=== PATIENT | female | born 2000 | race Caucasian/White ===

== ENCOUNTER 2024-09-25 15:56 | Outpatient (CLI) | payer OTHER, SELFPAY ==
[2024-09-25 16:17] VITALS: PULSE 82; O2SAT 98
[2024-09-25 16:20] VITALS: BP 123/67; PULSE 73
[2024-09-25 16:21] LABS: Hematocrit 31.5 % (33.0-51.0); Hemoglobin* 10.3 gm/dL (12.0-16.0); Mean Corpuscular HGB Conc 33 gm/dL (32-36); Mean Corpuscular Hemoglobin 28 pg (26-34); Mean Corpuscular Volume 85 fL (80-100); Platelet Count* 241 K/uL (140-440); Red Blood Count 3.73 m/uL (4.00-5.20); White Blood Count* 11.11 K/uL (4.50-11.00)
[2024-09-25 16:30] VITALS: BP 120/64; PULSE 66
[2024-09-25 16:30] LABS: Slide Review Reflex No
[2024-09-25 16:40] VITALS: BP 117/60; PULSE 76
[2024-09-25 16:41] LABS: Alanine Aminotransferase* 14 U/L (4-35); Aspartate Amino Transferase* 19 U/L (12-35); Blood Urea Nitrogen* 14 mg/dL (5-24); Creatinine* 0.6 mg/dL (0.5-1.5); Estimated Glomerular Filt Rate 127 ml/min
[2024-09-25 16:50] VITALS: BP 117/59; PULSE 70
[2024-09-25 17:16] LABS: Total Protein Urine < 5 mg/dL
[2024-09-25 17:17] LABS: Creatinine Urine 145.2 mg/dL; Protein Creatinine Ratio Urine 0.03 (0-0.19)
--- NOTE | 2024-09-25 17:56 | PC.OBNST ---
NST Note NST Note Start: 09/25/24 16:07 Freq: ONCE Status: Active Protocol: Document 09/25/24 17:54 [facility] (Rec: 09/25/24 17:56 [facility] [id number]) NST Note 1 Para (# of births) 0 EDC 10/16/24 Gestational Age In Weeks & Days 37 Weeks & 0 Days Patient Presented with Complaint(s) of Other Other Complaints Pt. called and had increased swelling and high BP readings at home 150's/90's Reactive Yes Appropriate for Gestational Age Yes DAVID Santos Date 09/25/24 Reactive Yes Appropriate for Gestational Age Yes DAVID Mosley Date 09/25/24 OB NST charge Yes Complete NST Note via Write Note Yes The provider's electronic signature indicates the NST is reactive/appropriate for gestational age. *Note to provider: If an addendum is required, open the patient's chart and click on the note under the Nurse/Allied Health tab.
== END 2024-09-25 17:55 | disposition home or self-care (01) ==
LOC: OB OUT 15:57 → OB 15:58
PROVIDERS: PCP Family Medicine; Visit Provider Family Medicine
DX: O26.893 Other specified pregnancy related conditions, third trimester (principal); R03.0 Elevated blood-pressure reading, without diagnosis of hypertension; Z3A.37 37 weeks gestation of pregnancy
CPT/HCPCS: 36415; 59025; 82565; 82570; 84156; 84450; 84460; 84520; 85027; G0463

== ENCOUNTER 2024-09-30 17:08 | Outpatient (CLI) | payer OTHER, SELFPAY ==
[2024-09-30] VITALS (12 sets, daily range): BP systolic 110–133; BP diastolic 61–83; PULSE 75–93; TEMP 37.4
[2024-09-30 17:45] LABS: Hematocrit 30.1 % (33.0-51.0); Hemoglobin* 9.9 gm/dL (12.0-16.0); Mean Corpuscular HGB Conc 33 gm/dL (32-36); Mean Corpuscular Hemoglobin 28 pg (26-34); Mean Corpuscular Volume 84 fL (80-100); Platelet Count* 244 K/uL (140-440); Red Blood Count 3.57 m/uL (4.00-5.20); White Blood Count* 12.74 K/uL (4.50-11.00)
[2024-09-30 17:51] LABS: Slide Review Reflex No
[2024-09-30 18:02] LABS: Aspartate Amino Transferase* 18 U/L (12-35); Blood Urea Nitrogen* 12 mg/dL (5-24); Creatinine* 0.6 mg/dL (0.5-1.5); Estimated Glomerular Filt Rate 127 ml/min
[2024-09-30 18:03] LABS: Alanine Aminotransferase* 13 U/L (4-35)
[2024-09-30 18:30] LABS: Total Protein Urine 13 mg/dL
[2024-09-30 18:53] LABS: Creatinine Urine 40.8 mg/dL; Protein Creatinine Ratio Urine 0.32 (0-0.19)
--- NOTE | 2024-09-30 20:56 | PC.OBNST ---
NST Note NST Note Start: 09/30/24 17:14 Freq: ONCE Status: Active Protocol: Document 09/30/24 20:30 [facility] (Rec: 09/30/24 20:55 [facility] [id number]) NST Note 1 Para (# of births) 0 EDC 10/16/24 Gestational Age In Weeks & Days 37 Weeks & 5 Days Patient Presented with Complaint(s) of Other Other Complaints R/O Pre-eclampsia/gestational hypertension Reactive Yes Appropriate for Gestational Age Yes RN Kala RN Date 09/30/24 Reactive Yes Appropriate for Gestational Age Yes RN Adebayo RN Date 09/30/24 OB NST charge Yes Complete NST Note via Write Note Yes The provider's electronic signature indicates the NST is reactive/appropriate for gestational age. *Note to provider: If an addendum is required, open the patient's chart and click on the note under the Nurse/Allied Health tab.
--- NOTE | 2024-10-16 21:07 | PC.OBNST ---
NST Note NST Note Start: 09/30/24 17:14 Freq: ONCE Status: Discharge Protocol: Document 09/30/24 20:30 [facility] (Rec: 09/30/24 20:55 [facility] [id number]) NST Note 1 Para (# of births) 0 EDC 10/16/24 Gestational Age In Weeks & Days 37 Weeks & 5 Days Patient Presented with Complaint(s) of Other Other Complaints R/O Pre-eclampsia/gestational hypertension Reactive Yes Appropriate for Gestational Age Yes RN Kala RN Date 09/30/24 Reactive Yes Appropriate for Gestational Age Yes RN Adebayo RN Date 09/30/24 OB NST charge Yes Complete NST Note via Write Note Yes The provider's electronic signature indicates the NST is reactive/appropriate for gestational age. *Note to provider: If an addendum is required, open the patient's chart and click on the note under the Nurse/Allied Health tab.
== END 2024-09-30 21:06 | disposition home or self-care (01) ==
LOC: OB OUT 17:08 → OB 20:21
PROVIDERS: PCP Family Medicine; Visit Provider Family Medicine
DX: O13.3 Gestational [pregnancy-induced] hypertension without significant proteinuria, third trimester (principal); Z3A.37 37 weeks gestation of pregnancy
CPT/HCPCS: 36415; 59025; 82565; 82570; 84156; 84450; 84460; 84520; 85027; G0463

== ENCOUNTER 2024-10-01 11:28 | Inpatient (IN) | payer OTHER, SELFPAY ==
[2024-10-01] VITALS (11 sets, daily range): BP systolic 115–137; BP diastolic 55–86; PULSE 73–96; RESP 16; TEMP 36.8–37.3; O2SAT 98; BMI 36.1
[2024-10-01 12:37] LABS: Basophils Absolute Auto 0.05 K/uL (0.00-0.30); Basophils Percent Auto 0.5 % (0.0-3.0); Eosinophils Absolute Auto 0.08 K/uL (0.00-0.50); Eosinophils Percent Auto 0.7 % (0.0-7.0); Hematocrit 31.7 % (33.0-51.0); Hemoglobin* 10.3 gm/dL (12.0-16.0); Immature Granulocytes Abs Auto 0.02 K/uL (0.00-0.30); Immature Granulocytes Pct Auto 0.2 %; Lymphocytes Percent Auto 15.7 % (20-44); Mean Corpuscular HGB Conc 33 gm/dL (32-36); Mean Corpuscular Hemoglobin 27 pg (26-34); Mean Corpuscular Volume 84 fL (80-100); Monocytes Percent Auto 6.2 % (0.0-11.0); Neutrophils Percent Auto 76.7 % (42.0-72.0); Platelet Count* 232 K/uL (140-440); RDW Coefficient of Variation % 14.5 % (11.5-15.5); Red Blood Count 3.77 m/uL (4.00-5.20)
[2024-10-01 12:41] LABS: Slide Review Reflex No
[2024-10-01] MEDS: miSOPROStoL 25 MCG/0.25 TABLET PO ×3 (12:46→20:08)
[2024-10-01 13:02] LABS: Alanine Aminotransferase* 13 U/L (4-35); Aspartate Amino Transferase* 17 U/L (12-35); Blood Urea Nitrogen* 12 mg/dL (5-24); Creatinine* 0.6 mg/dL (0.5-1.5); Estimated Glomerular Filt Rate 127 ml/min
--- NOTE | 2024-10-01 19:45 | PM.OBHPLI ---
OB - H&P: HPI Labor/Induction History of Present Illness Time Seen by Provider: 12:30 Date Seen: 10/01/24 Chief Complaint: The patient is a 24 year old 1 para 1 at 37.6 weeks gestation by LMP and consistent with 9 week 6 day ultrasound, who presents for IOL for preeclampsia (hypertension and proteinuria). Chief complaint: maternity : 1 Para: 0 Indications for induction: pre-eclampsia Narrative: Shannan Baker is a 24 year old female, who presents for IOL for preeclampsia. Patient had elevated blood pressures yesterday in clinic in the 150s systolic. Had 4 hours of monitoring and did not have another elevated bp. Preeclampsia labs last evening were positive for proteinuria. She returned to clinic this morning and had systolic bp of 142. She had no symptoms of preeclampsia other than edema. Given now meeting criteria for preeclampsia, she was moved to [facility] for IOL at [address]d. Dr Ellis is primary FMOB, she will take over this evening. History of Present Dating criteria: based on LMP (consistent with 9 week ultrasound) care: good care Ultrasounds: normal 1st trimester US and normal mid trimester US complications: preeclampsia Medical complications: none Labs Blood type: O (+) positive Rubella: immune RPR/VDLR: nonreactive GBS status: negative HBsAG: negative Review of Systems Status of ROS: Reports: 10 or more systems reviewed and unremarkable except as noted in History and below Meds Home Medications and Allergies Home Medications ?Medication ?Instructions ?Recorded ?Confirmed ?Type vit no.95-ferrous 1 tab PO DAILY 10/01/24 10/01/24 History fumarate 28 mg-folic acid 800 mcg tablet () Allergies Allergy/AdvReac Type Severity Reaction Status Date / Time Penicillins Allergy Unknown Verified 09/25/24 16:27 OB - H&P: Exam Physical Exam: Vital signs: Temp Pulse Resp BP Pulse Ox 98.3 F 75 16 119/56 L 98 10/01/24 19:38 10/01/24 19:39 10/01/24 17:57 10/01/24 19:39 10/01/24 11:39 Constitutional: Constitutional: no acute distress Routine HEENT Exam: Head: Present atraumatic ENT: Present mucous membranes moist and normal exam Routine Neck Exam: Neck: Present full ROM Detailed Neck Exam: Thyroids: Thyroid: Present normal Routine Respiratory Exam: Respiratory: Present CTA bilaterally Routine Cardiovascular Exam: Cardiovascular: RRR, S1 and S2 Detailed Labor and Delivery Exam: Patient Gravid: Yes Dilation (cm): 1 Effacement (%): 20 Cervix position: posterior Consistency: medium Cervical ripeness score: 2 Fetus (Single): Station: -3 Amniotic Membrane Status: intact Heart Rate Baseline: 130 Monitor Accelerations: Present Monitor Decelerations: None Burning Machine Operator Variability: Moderate (6-25) Routine Extremities Exam: Extremities: Present full ROM and pedal edema (2+ pitting edema bilaterally) Routine Skin Exam: Present intact Routine Neurological Exam: Present alert and oriented X3 Routine Psychiatric Exam: Present normal affect OB - Results Labs Labs: Short CBC 10/01/24 Range/Units 12:21 WBC 10.80 (4.50-11.00) K/uL Hgb 10.3 L (12.0-16.0) gm/dL Hct 31.7 L (33.0-51.0) % Plt Count 232 (140-440) K/uL BMP 10/01/24 12:21 BUN 12 Creatinine 0.6 Liver Function 10/01/24 Range/Units 12:21 AST 17 (12-35) U/L ALT 13 (4-35) U/L OB - Problem Based A/P Additional Plan (1) Preeclampsia: Problem details: Diagnosed off elevated BPs and proteinuria. Status: Acute Plan: - IOL now - Preeclampsia assessments - Repeat Pre-E labs reassuring (2) Term : Status: Acute Plan: - anticipate Plan Cytotec was started on admission. Patient desired cook catheter placement. Unfortunately, did not tolerate placement. Will continue PO cytotec with plan for cook vs pitocin after completing 6 doses. - Dr Ellis to resume care. Updated. Delivery/Labor/Induction Plan Plan: induction Induction method: per misoprostol protocol
[2024-10-01] MEDS: hydrOXYzine pamoate 25 MG CAPSULE 100 MG PO (23:19)
[2024-10-02] VITALS (89 sets, daily range): BP systolic 86–156; BP diastolic 49–86; PULSE 61–193; RESP 16–18; TEMP 36.3–38.2; O2SAT 93–100
[2024-10-02] MEDS: miSOPROStoL 25 MCG/0.25 TABLET PO ×3 (00:49→06:26)
--- NOTE | 2024-10-02 09:23 | PM.OBPNL ---
Subjective Date Seen: 10/02/24 Narrative: Shannan is a at 38 weeks here for IOL for preeclampsia. BP remains well controlled overnight. She completed oral cytotec overnight, would intermittently have regular, moderate intensity contractions. Since last dose at 0630, contractions have subsided. Cervix this morning 250/-3. Offered cook catheter placement for more cervical ripening vs AROM with pitocin if needed. Patient elected for AROM as prior cook attempt was traumatic. With AROM, there was a scant amount of clear/blood tinged fluid. Objective Vital Signs: Last Vital Signs Temp 99.2 F 10/02/24 06:27 Pulse 83 10/02/24 08:53 Resp 16 10/02/24 06:27 BP 104/52 L 10/02/24 08:53 Pulse Ox 97 10/02/24 06:25 Pelvic Exam Dilation (cm): 2 Effacement (%): 50 Station: -3 Contractions Monitor mode: External Contraction pattern: Irregular Contraction intensity: Mild Assessment Assessment: induction ongoing Station: -3 Amniotic Membrane Status: AROM Status: Category l Heart Rate Baseline: 140 Correction Variability: Moderate (6-25) Monitor Accelerations: Present Monitor Decelerations: None Plan Plan: Completed oral cytotec doses. AROM as above. Start pitocin after 1030 if no regular contraction pattern. Patient desires water if BP remains adequately controlled/no magnesium needed.
[2024-10-02] MEDS: LACTATED RINGERS 1000 ML 1,000 ML 123 ML IV (15:16)
[2024-10-02] MEDS: OXYTOCIN 30 unit/500 ML in NS 30 UNIT/500 ML BAG IVPB (15:16)
[2024-10-02] MEDS: fentaNYL 100 MCG/2 ML inj IVP (16:23)
[2024-10-02 16:41] LABS: Basophils Percent Auto 0.1 % (0.0-3.0); Eosinophils Percent Auto 0.5 % (0.0-7.0); Hemoglobin* 12.4 gm/dL (12.0-16.0); Immature Granulocytes Pct Auto 0.2 %; Lymphocytes Percent Auto 18.3 % (20-44); Mean Corpuscular HGB Conc 33 gm/dL (32-36); Mean Corpuscular Hemoglobin 27 pg (26-34); Mean Corpuscular Volume 84 fL (80-100); Monocytes Percent Auto 5.5 % (0.0-11.0); Neutrophils Percent Auto 75.4 % (42.0-72.0); Platelet Count* 291 K/uL (140-440); RDW Coefficient of Variation % 14.7 % (11.5-15.5); Red Blood Count 4.54 m/uL (4.00-5.20); White Blood Count* 16.37 K/uL (4.50-11.00)
[2024-10-02 16:42] LABS: Slide Review Reflex No
[2024-10-02] MEDS: LIDOCAINE 2% (PF) 5 ML VIAL EPIDURAL (16:56)
[2024-10-02] MEDS: ROPIVACAINE 0.2% 100 ml 100 ML 12 MG EPIDURAL (17:00)
[2024-10-02] MEDS: fentaNYL 250 MCG/5 ML inj 100 MCG EPIDURAL (17:00)
[2024-10-02] MEDS: PHENYLEPHRINE 100 MCG/ML SYRINGE IVP ×3 (17:05→17:16)
--- NOTE | 2024-10-02 17:11 | PM.ANBPRC ---
[facility] Social History What is your current living situation?: I presently have a place to live Problems where you live: no known problems In the past 12 months, utilities in danger of being shut off: no In past 12 months, lack of transportation kept you from medical appts, meetings, work, or getting things needed for daily living: no In the past 12 mos, have been you worried that your food would run out before you had money to buy more?: never true In the past 12 mos, the food you bought just didn't last and you didn't have money to buy more?: never true Smoking Status: Never smoker How often does anyone, including family, friends and others, physically hurt you: never How often does anyone, including family, friends and others, insult or talk down to you: never How often does anyone, including family, friends and others, threaten you with harm: never How often does anyone, including family, friends and others, scream or curse at you: never Meds Home Medications and Allergies Home Medications ?Medication ?Instructions ?Recorded ?Confirmed ?Type vit no.95-ferrous 1 tab PO DAILY 10/01/24 10/01/24 History fumarate 28 mg-folic acid 800 mcg tablet () Allergies Allergy/AdvReac Type Severity Reaction Status Date / Time Penicillins Allergy Unknown Verified 09/25/24 16:27 Results Labs Labs: Laboratory Results - last 24 hr 10/02/24 16:27 WBC 16.37 H RBC 4.54 Hgb 12.4 Hct 38.0 MCV 84 MCH 27 MCHC 33 RDW Coeff of Sergio 14.7 Plt Count 291 Neut % (Auto) 75.4 H Lymph % (Auto) 18.3 L [place] % (Auto) 5.5 Eos % (Auto) 0.5 Baso % (Auto) 0.1 Neut # (Auto) 12.30 H Lymph # (Auto) 3.00 H [place] # (Auto) 0.90 Eos # (Auto) 0.10 Baso # (Auto) 0.00 Abs Immat Gran (auto) 0.00 Imm/Tot Granulo (auto) 0.2 Vital Signs Vital Signs: Last Vital Signs Temp 98.1 F 10/02/24 12:37 Pulse 79 10/02/24 17:10 Resp 16 10/02/24 12:37 BP 94/52 L 10/02/24 17:10 Pulse Ox 97 10/02/24 17:10 Weight: 89.584 kg Height: 157.48 cm Anesthesia Procedures Epidural Insertion Patient Location: OB Start Time: 16:15 Stop Time: 17:15 Start Date: 10/02/24 Stop Date: 10/02/24 Reason for Block: primary anesthetic Patient Position: sitting Performed By: Adam Frey Preanesthetic Checklist: IV checked, risks and benefits discussed, surgical consent, monitors and equipment checked, pre-op evaluation, timeout performed and anesthesia consent Prep: chlorhexidine gluconate Monitoring: blood pressure monitoring, hospital monitor, continuous pulse oximetry and heart rate Approach: midline Vertebral Space: lumbar (1-5) Needle Type: Tuohy needle Injection Technique: continuous catheter Needle gauge: 17 Needle Length (cm): 10 cm Needle Insertion Depth (cm): 6 Catheter Gauge: 19 Catheter Type: multi-orifice Catheter at skin depth (cm): 12 Test Dose Result: negative and lidocaine 1.5% with epinephrine 1 to 200,000 Events: other
[2024-10-02] MEDS: ePHEDrine sulfate 5 MG/ML inj 10 MG IVP ×2 (17:26→17:48)
[2024-10-02] MEDS: LACTATED RINGERS 1000 ML 1,000 ML 500 ML IV (17:27)
--- NOTE | 2024-10-02 18:52 | PM.OBPNL ---
Subjective Date Seen: 10/02/24 Narrative: Shannan is a 24 yo at 38 weeks, IOL for preeclampsia. Contractions became more strong/regular once pitocin started this afternoon. Patient received an epidural around 1600, is now comfortable without pain or pelvic pressure. Objective Vital Signs: Last Vital Signs Temp 99 F 10/02/24 17:45 Pulse 93 10/02/24 18:39 Resp 18 10/02/24 13:35 BP 113/55 L 10/02/24 18:39 Pulse Ox 99 10/02/24 18:40 Pelvic Exam Dilation (cm): 4 Effacement (%): 60 Station: -3 Contractions Monitor mode: Internal Contraction Frequency: 2.5 minutes Contraction pattern: Regular Contraction intensity: Strong/Firm Pitocin Rate (mU/min): 4 Assessment Assessment: induction ongoing Station: -3 Amniotic Membrane Status: AROM Status: Category l Heart Rate Baseline: 150 Operations Research Director Variability: Moderate (6-25) Monitor Accelerations: Present Monitor Decelerations: Variable Plan Plan: IOL ongoing, continue pitocin titration. Patient comfortable with epidural. BP within normal ranges. Anticipate .
[2024-10-02] MEDS: LACTATED RINGERS 1000 ML 1,000 ML 125 ML IV (21:13)
[2024-10-02] MEDS: ONDANSETRON 2 MG/ML inj 4 MG IV (22:54)
[2024-10-02 23:04] LABS: Rapid Plasma Reagin (RPR) Non Reactive (Non Reactive)
[2024-10-02] MEDS: ACETAMINOPHEN 500 MG TABLET 1000 MG PO (23:41)
[2024-10-03] VITALS (28 sets, daily range): BP systolic 113–137; BP diastolic 57–83; PULSE 80–148; RESP 16–18; TEMP 36.6–36.8; O2SAT 93–100
[2024-10-03] MEDS: CLINDAMYCIN 900 MG/50 ML-D5W 900 MG/50 ML PIGGYBACK 100 MG IVPB (00:23)
[2024-10-03] MEDS: LIDOCAINE 1 % PF 30 ML INJECTION (00:40)
--- NOTE | 2024-10-03 01:12 | W.PM.VAGDEL1 ---
Procedure Delivery date: 10/03/24 Procedure Done: Global Events: Pre-Eclampsia Intrapartal Events: Labor Induction, Febrile (>100.4F) and Chorioamnionitis Delivery augmentation: rupture of membranes and pitocin Delivery monitor: external FHT and internal uterine Route of delivery: Episiotomy description: None Laceration description: Vaginal - 1st Degree Delivery repair: Vicryl Estimated blood loss (mL): 75 Anesthesia type: Epidural Disposition: floor Narrative: The patient is a 24 year-old admitted on 10/01/2024 at 37 Weeks, 6 Days gestation for preeclampsia.? Cervical exam on admission was 1 cm/20 % effaced/-3 station with membranes intact in vertex presentation.? Contractions were rare. heart rate demonstrated baseline 140 bpm with moderate variability, + accelerations, - decelerations; a category 1 tracing.?Cervical ripening was per PO cytotec protocol after failed attempt at cook catheter placement. AROM occurred at 0908 with clear fluid, at that time cervix was 2/50/-3. When patient was complete, maternal and tachycardia as well as maternal temp of 100.8 was noted. Antibiotics started however only clindamycin was able to be administered prior to delivery. ? Labor Analgesia:? epidural 1700 on 10/02/24 ? Pitocin:? yes ? Labor onset:? 0832 ? Complete:? 2346 ? Pushing:? 2348 ? heart tones during second stage were category 2 with deep decels with pushing. ? At 0029 a viable female infant delivered in vertex OA presentation over intact perineum via spontaneous vaginal delivery.?There was a loose nuchal cord reduced at the perineum. was placed on maternal abdomen.? Cord was clamped and cut after a 60 second delay.? Nose and mouth were bulb suctioned.? weight 6lb1oz.? 7 at 1 minute and 8 at 5 minutes.? Shoulder dystocia: no.? Nuchal cord: yes. ? Placenta delivered spontaneously and complete at 0034 with a 3 vessel cord. ? Mother and infant were stable after delivery. ? Lacerations:? 1st degree vaginal, repaired with 3-0 vicryl suture. ? Blood loss: 75 mL. Blood loss measurement type: QBL ? Sponge and needles counts are correct. [place] Gender: Female presentation: vertex Placental Delivery Description: Spontaneous Cord Description: 3 Vessels, Nuchal Cord, Loose and Reduced
[2024-10-03] MEDS: IBUPROFEN 600 MG TABLET PO ×3 (01:32→17:20)
[2024-10-03] MEDS: ACETAMINOPHEN 500 MG TABLET 1000 MG PO ×3 (07:32→20:59)
--- NOTE | 2024-10-03 08:45 | PM.OBPNVD1 ---
OB - PN:Subj Subjective Time Seen by Provider: 08:45 Date Seen: 10/03/24 Patient comments OB post-: no complaints, pain well controlled and tolerating diet [place] infant status: and doing well [place] feeding status: exclusively OB - PN: Obj Exam Physical Exam: Vital signs: Temp Pulse Resp BP Pulse Ox O2 Del Method 97.8 F 85 16 121/78 95 Room Air 10/03/24 07:32 10/03/24 04:50 10/03/24 04:50 10/03/24 04:50 10/03/24 04:50 10/03/24 04:50 Constitutional: Constitutional: no acute distress and mild distress Routine HEENT Exam: Head: Present atraumatic and normal inspection Routine Neck Exam: Neck: Present full ROM Routine Respiratory Exam: Respiratory: Present CTA bilaterally Routine Cardiovascular Exam: Cardiovascular: Present RRR, S1 and S2; Absent murmur Routine Neurological Exam: Neurological: Present alert and oriented X3 Routine Psychiatric Exam: Psychiatric: Present normal affect OB - PN: Obj Data Labs Labs: Laboratory Results - last 24 hr 10/01/24 10/02/24 12:21 16:27 WBC 16.37 H RBC 4.54 Hgb 12.4 Hct 38.0 MCV 84 MCH 27 MCHC 33 RDW Coeff of Sergio 14.7 Plt Count 291 Neut % (Auto) 75.4 H Lymph % (Auto) 18.3 L [place] % (Auto) 5.5 Eos % (Auto) 0.5 Baso % (Auto) 0.1 Neut # (Auto) 12.30 H Lymph # (Auto) 3.00 H [place] # (Auto) 0.90 Eos # (Auto) 0.10 Baso # (Auto) 0.00 Abs Immat Gran (auto) 0.00 Imm/Tot Granulo (auto) 0.2 RPR Screen Non Reactive Blood Type O Positive Antibody Screen NEGATIVE OB - PN: A/P Delivery Assessment and Plan (1) Preeclampsia: Problem details: Diagnosed off elevated BPs and proteinuria. Status: Acute Assessment and Plan: blood pressures normal, continue assessments (2) Term : Problem details: s/p Status: Inactive Plan - routine cares Plan day: 1 Plan: routine care
[2024-10-03] MEDS: DOCUSATE SODIUM 100 MG CAPSULE PO (10:48)
[2024-10-04 01:10] VITALS: BP 116/69; PULSE 85; RESP 18; O2SAT 95
[2024-10-04] MEDS: IBUPROFEN 600 MG TABLET PO ×3 (03:14→20:30)
[2024-10-04 04:35] VITALS: BP 103/67; PULSE 73; RESP 18; TEMP 37.2; O2SAT 96
[2024-10-04 06:45] LABS: Hemoglobin* 8.8 gm/dL (12.0-16.0)
--- NOTE | 2024-10-04 07:35 | PM.OBPNVD1 ---
OB - PN:Subj Subjective Date Seen: 10/04/24 [place] status: Narrative: PPD #1 - pain relatively well controlled with Tylenol and ibuprofen. Feels achy. going well. Hoping to meet with today. Bleeding appropriate. Sometimes feels a bit light headed when up and moving around. OB - PN: Obj Exam Physical Exam: Vital signs: Temp Pulse Resp BP Pulse Ox O2 Del Method 98.9 F 73 18 103/67 96 Room Air 10/04/24 04:35 10/04/24 04:35 10/04/24 04:35 10/04/24 04:35 10/04/24 04:35 10/04/24 04:35 Narrative: Gen: alert, pleasant, NAD CV: RRR, no murmurs Lungs: CTA b/l Abd: soft, fundus firm and below umbilicus Extremities: 1+ pitting edema in b/l LE, no clonus OB - PN: Obj Data Labs Labs: Laboratory Results - last 24 hr 10/04/24 06:20 Hgb 8.8 L OB - PN: A/P Delivery Assessment and Plan (1) Preeclampsia: Problem details: Diagnosed off elevated BPs and proteinuria. Status: Acute (2) Term : Problem details: s/p Status: Inactive (3) anemia: Status: Acute Plan day: 1 Plan: routine care Comments: Start PO iron for anemia. See today. Anticipate discharge home on 10/05/24.
[2024-10-04 07:58] VITALS: BP 127/85; PULSE 76; RESP 16; TEMP 36.9; O2SAT 95
[2024-10-04] MEDS: DOCUSATE SODIUM 100 MG CAPSULE PO (08:01)
[2024-10-04] MEDS: FERROUS SULFATE 325 MG TABLET PO (08:01)
[2024-10-04] MEDS: ACETAMINOPHEN 500 MG TABLET 1000 MG PO (08:02)
[2024-10-04] MEDS: LANOLIN CREAM 1 APPLIC TOPICAL (08:49)
--- NOTE | 2024-10-04 12:07 | PM.ANPOST ---
Post Anesthesia Note Post Anesthesia Note Patient seen: Inpatient Respiratory Status: adequate Cardiovascular Status: adequate Mental Status: baseline Pain: adequate Temp: baseline Anesthetic awareness: N/A Complications: none Follow care: none
[2024-10-04 13:51] VITALS: BP 123/81; PULSE 78; RESP 16; TEMP 36.9; O2SAT 97
[2024-10-04 20:28] VITALS: BP 132/87; PULSE 91; RESP 16; O2SAT 97
[2024-10-04 23:23] VITALS: BP 133/84; PULSE 90; RESP 18; TEMP 36.9; O2SAT 97
[2024-10-05] VITALS (12 sets, daily range): BP systolic 114–158; BP diastolic 72–90; PULSE 82–97; RESP 16–20; TEMP 36.6–37; O2SAT 97
[2024-10-05] MEDS: IBUPROFEN 600 MG TABLET PO (03:10)
[2024-10-05] MEDS: FERROUS SULFATE 325 MG TABLET PO (07:48)
[2024-10-05] MEDS: ACETAMINOPHEN 500 MG TABLET 1000 MG PO (07:48)
--- NOTE | 2024-10-05 08:05 | PM.OBPNVD1 ---
OB - PN:Subj Subjective Time Seen by Provider: 08:05 Date Seen: 10/05/24 Patient comments OB post-: no complaints, pain well controlled, tolerating diet and flatus present infant status: and doing well [place] feeding status: exclusively OB - PN: Obj Exam Physical Exam: Vital signs: Temp Pulse Resp BP Pulse Ox O2 Del Method 97.8 F 82 18 150/90 H 97 Room Air 10/05/24 07:45 10/05/24 07:45 10/05/24 07:45 10/05/24 08:03 10/05/24 07:45 10/05/24 07:45 Constitutional: Constitutional: no acute distress Routine HEENT Exam: Head: Present atraumatic and normal inspection Routine Neck Exam: Neck: Present full ROM Routine Respiratory Exam: Respiratory: Present CTA bilaterally Routine Cardiovascular Exam: Cardiovascular: Present RRR, S1 and S2 Routine Abdominal Exam: Abdominal: Present normal bowel sounds Routine Extremities Exam: Extremities: Present full ROM and pedal edema (especially on top of foot. ); Absent calf tenderness Routine Back/Spine/Pelvis Exam: Back/Spine: Present full ROM Routine Neurological Exam: Neurological: Present alert and oriented X3 Routine Psychiatric Exam: Psychiatric: Present normal affect and normal thought process OB - PN: A/P Delivery Assessment and Plan (1) Preeclampsia: Problem details: Diagnosed off elevated BPs and proteinuria. Status: Acute Assessment and Plan: - blood pressures looked great, unfortunately has had 2 elevated BP today. 150/90. - repeat pre-e labs now and start labetalol 100 mg bid. (2) Term : Problem details: s/p Status: Inactive (3) anemia: Problem details: hemoglobin 8.8 after delivery Status: Acute Assessment and Plan: -start oral iron outpatient, sent to pharmacy Plan day: 2 Plan: routine care
[2024-10-05 08:32] LABS: Hematocrit 30.4 % (33.0-51.0); Hemoglobin* 9.7 gm/dL (12.0-16.0); Mean Corpuscular HGB Conc 32 gm/dL (32-36); Mean Corpuscular Hemoglobin 27 pg (26-34); Mean Corpuscular Volume 85 fL (80-100); Platelet Count* 247 K/uL (140-440); Red Blood Count 3.58 m/uL (4.00-5.20); White Blood Count* 12.99 K/uL (4.50-11.00)
[2024-10-05 08:42] LABS: Slide Review Reflex No
[2024-10-05] MEDS: LABETALOL HCL 100 MG TABLET PO (08:44)
[2024-10-05 08:49] LABS: Alanine Aminotransferase* 18 U/L (4-35); Aspartate Amino Transferase* 20 U/L (12-35); Creatinine* 0.7 mg/dL (0.5-1.5); Est. Creatinine Clearance* 96.32; Estimated Glomerular Filt Rate 122 ml/min
[2024-10-05] MEDS: LABETALOL HCL 100 MG TABLET 200 MG PO (17:08)
--- NOTE | 2024-10-05 19:32 | PM.OBPNVD1 ---
OB - PN:Subj Subjective Time Seen by Provider: 17:00 Date Seen: 10/05/24 Patient comments OB post-: no complaints, pain well controlled and tolerating diet [place] infant status: and doing well [place] feeding status: exclusively OB - PN: Obj Exam Physical Exam: Vital signs: Temp Pulse Resp BP Pulse Ox O2 Del Method 98.6 F 91 16 120/79 97 Room Air 10/05/24 12:37 10/05/24 12:37 10/05/24 12:37 10/05/24 19:10 10/05/24 12:37 10/05/24 12:37 Constitutional: Constitutional: no acute distress Routine Respiratory Exam: Respiratory: Present CTA bilaterally Routine Cardiovascular Exam: Cardiovascular: Present RRR, S1 and S2; Absent murmur Routine Extremities Exam: Extremities: Present pedal edema; Absent calf tenderness Routine Neurological Exam: Neurological: Present alert and oriented X3 Detailed Psychiatric Exam: Mood and affect: Present flat OB - PN: Obj Data Labs Labs: Laboratory Results - last 24 hr 10/05/24 08:20 WBC 12.99 H RBC 3.58 L Hgb 9.7 L Hct 30.4 L MCV 85 MCH 27 MCHC 32 Plt Count 247 Creatinine 0.7 Estimated Creat Clear 96.32 Estimated GFR 122 AST 20 ALT 18 OB - PN: A/P Delivery Assessment and Plan (1) Preeclampsia: Problem details: Diagnosed off elevated BPs and proteinuria. Status: Acute Assessment and Plan: - blood pressures became significantly more elevated today. Started 100 mg labetalol bid. Titrated up to 200 mg bid after elevated BP this evening. Preeclampsia labs today reassuring. (2) Term : Problem details: s/p Status: Inactive (3) anemia: Problem details: hemoglobin 8.8 after delivery, now improving Status: Acute Assessment and Plan: -oral iron to be started on outpatient Plan - routine cares - recommend close monitoring of BP. Goal is <135/85. If not at goal, will add nifedpine - anticipate discharge to home tomorrow. Plan day: 2 Plan: routine care
[2024-10-05] MEDS: NIFEdipine 30 MG TAB.ER.24 PO (20:46)
[2024-10-06 02:20] VITALS: BP 114/70; PULSE 78; RESP 14; TEMP 37.1; O2SAT 98
[2024-10-06 05:05] VITALS: BP 127/83
[2024-10-06] MEDS: LABETALOL HCL 100 MG TABLET 200 MG PO (05:09)
[2024-10-06 05:37] LABS: Hematocrit 29.8 % (33.0-51.0); Hemoglobin* 9.7 gm/dL (12.0-16.0); Mean Corpuscular HGB Conc 33 gm/dL (32-36); Mean Corpuscular Hemoglobin 27 pg (26-34); Mean Corpuscular Volume 84 fL (80-100); Platelet Count* 254 K/uL (140-440); Red Blood Count 3.54 m/uL (4.00-5.20); White Blood Count* 11.37 K/uL (4.50-11.00)
[2024-10-06 05:43] LABS: Slide Review Reflex No
[2024-10-06 05:58] LABS: Alanine Aminotransferase* 22 U/L (4-35); Aspartate Amino Transferase* 25 U/L (12-35)
[2024-10-06 06:08] LABS: Creatinine* 0.6 mg/dL (0.5-1.5); Est. Creatinine Clearance* 112.38; Estimated Glomerular Filt Rate 127 ml/min
[2024-10-06 08:00] VITALS: BP 126/82; PULSE 75; RESP 16; TEMP 36.8; O2SAT 97
[2024-10-06] MEDS: TRIAMCINOLONE ACETONIDE CREAM 0.1 % 1 APPLIC TOPICAL (08:23)
--- NOTE | 2024-10-06 08:23 | PM.OBDSVD1 ---
DS: Providers Provider Date Seen: 10/06/24 Date of admission: 10/01/24 11:28 Primary care physician: Belkis Ellis MD Admitting Clinician: Lucy Del Real MD Attending Physician on discharge: Belkis Ellis MD Date of Discharge: 10/06/24 DS: Diagnosis Discharge Diagnosis (1) Vaginal delivery: Status: Acute (2) Preeclampsia: Status: Acute Problem details: Diagnosed off elevated BPs and proteinuria. (3) anemia: Status: Acute Problem details: hemoglobin 8.8 after delivery, now improving Exam Const: Vital Signs, click to edit/add: Vital Signs - 24 hr 10/05/24 08:43 10/05/24 12:37 10/05/24 14:45 Temperature 98.6 F Pulse Rate [Pulse Oximeter] 91 Respiratory Rate 16 Blood Pressure [Ri ght Arm] 143/89 H 126/81 139/85 Pulse Oximetry 97 Oxygen Delivery Me thod Room Air 10/05/24 16:48 10/05/24 18:04 10/05/24 19:10 Temperature Pulse Rate [Pulse Oximeter] Respiratory Rate Blood Pressure [Ri ght Arm] 158/89 H 147/87 H 120/79 Pulse Oximetry Oxygen Delivery Me thod 10/05/24 20:00 10/05/24 21:30 10/05/24 22:35 Temperature 98.6 F Pulse Rate [Pulse Oximeter] 97 Respiratory Rate 18 Blood Pressure [Ri ght Arm] 147/88 H 143/87 H 119/72 Pulse Oximetry 97 Oxygen Delivery Me thod Room Air 10/06/24 02:20 10/06/24 05:05 10/06/24 08:00 Temperature 98.7 F 98.3 F Pulse Rate [Pulse Oximeter] 78 75 Respiratory Rate 14 16 Blood Pressure [Ri ght Arm] 114/70 127/83 126/82 Pulse Oximetry 98 97 Oxygen Delivery Me thod Room Air Room Air Common normals: no apparent distress, average body habitus and oriented x3 HENMT: Common normals: normocephalic, hearing grossly normal bilaterally and moist oral mucous membranes Head and scalp: normocephalic Eye: Common normals: PERRL and EOMs intact bilaterally Pupil: PERRL Resp: Common normals: normal respiratory effort and no retractions GI: Common normals: Normal to inspection, nondistended, normoactive bowel sounds present and soft to palpation (uterus firm 2 cm below umbilicus. ) Palpation: soft (uterus firm 2 cm below umbilicus. ) Extremity: Other: 1+ pedal edema bilaterally. Neuro: Common normals: oriented x3 Psych: Common normals: mental status grossly normal, thought process normal, cooperative and affect normal Thought process: normal thought process Skin: Narrative: PUPPS rash (papules and plaques) over the lower half of the abdomen. OB - DS: Summary Hospital Course Hospital Course: The patient is a 24 year old G 1 P 1 at 38 weeks gestation that was admitted to the Center on 10/01/24 for IOL for preeclampsia. She had an uncomplicated vaginal delivery. She delivered a viable female . She is breast feeding. Labor course complicated by chorioamnonitis. the patient developed elevatged BP readings requiring labetalol and then nifedipine. She is currently well controlled with labetalol 200 mg BID and Nifedipine 30 mg/day. Peripartum Data delivery method: Vaginal Laceration description: Vaginal - 2nd Degree Episiotomy description: None Gender: Female Discharge Plan: Home Status at Discharge Functional status at discharge: independent ambulation Overall status at discharge: patient is progressing back to baseline Time Spent with Patient Time attestation: Total time spent providing and/or coordinating discharge services: Time spent: Less than 30 minutes Discharge Plan Discharge Disposition: Home, Self-Care Date of Admission: 10/01/24 11:28 Attending Provider on Discharge: Belkis Ellis Primary Care Provider: Belkis Ellis Condition: Improved Anticipated Discharge Date/Time: 10/05/24 10:00 Discharge Medications: New triamcinolone acetonide 0.1 % lotion 1 applic topical TID PRN (Reason: rash) Qty: 60 1RF ferrous sulfate 324 mg (65 mg iron) tablet,delayed release (DR/EC) 324 mg PO DAILY Qty: 60 0RF nifedipine 30 mg Tablet Extended Release 24hr 30 mg PO DAILY Qty: 30 0RF labetalol 100 mg Tablet 200 mg PO BID Qty: 120 0RF Continued PNV cmb#[id number]-ferrous fumarate-FA [] 28 mg iron- 800 mcg tablet 1 tab PO DAILY Discharge Orders: Discharge Order (Routine); Ordered 10/05/24 Ordered By: Lucy Del Real Patient Education: OB Vaginal/Breast Feeding Activity Level: Activity as Tolerated Activity Detail: Pelvic rest x 6 weeks, nothing in the vagina. Discharge Diet: Regular Diet Detail: high iron diet for your anemia, please start iron supplement daily in addition to your vitamin. May cause constipation, ok to use with stool softeners. Follow Up Appointments: Belkis Ellis MD [Primary Care Provider] - [facility] Discharge Comments: Follow up with Dr. Ellis at 6 weeks , sooner with concerns.
== END 2024-10-06 10:30 | disposition home or self-care (01) | DRG 805 ==
PROVIDERS: Admitting Provider Family Medicine; PCP Family Medicine; Visit Provider Family Medicine
DX: O14.94 Unspecified pre-eclampsia, complicating childbirth (principal); O41.1230 Chorioamnionitis, third trimester, not applicable or unspecified; Z37.0 Single live birth; O70.0 First degree perineal laceration during delivery; O90.81 Anemia of the puerperium; D64.9 Anemia, unspecified; Z3A.37 37 weeks gestation of pregnancy
CPT/HCPCS: 01967; 36415; 59200; 82565; 84450; 84460; 84520; 85018; 85025; 85027; 86592; 86850; 86900; 86901; 88307; A9270; C1726; J0736; J2003; J2371; J2405; J2795; J3010; J7120